=== PATIENT | male | born 1960 | race Hispanic/Latino ===

== ENCOUNTER 2017-10-17 14:53 | Emergency (ER) | payer MEDICARE, MEDICAID ==
[2017-10-17 15:02] VITALS: BMI 22.6
[2017-10-17 15:11] VITALS: BP 160/93; PULSE 102; RESP 20; TEMP 97.3; O2SAT 98
== END 2017-10-17 16:24 | disposition left against medical advice (07) ==
LOC: C.ER 14:53
DX: Z02.89 Encounter for other administrative examinations (principal); M79.602 Pain in left arm